=== PATIENT | male | born 1975 | race Caucasian/White ===

== ENCOUNTER → 2021-01-20 08:41 | Outpatient (BNVA) | payer OTHER, SELFPAY | PROVIDERS: PCP Internal Medicine; Visit Provider Physician Assistant | DX: S80.02XA Contusion of left knee, initial encounter (principal); W10.9XXA Fall (on) (from) unspecified stairs and steps, initial encounter; M25.462 Effusion, left knee | CPT/HCPCS: 73564; 99204 ==

== ENCOUNTER → 2021-01-27 10:43 | Outpatient (BNVA) | payer OTHER, SELFPAY | PROVIDERS: PCP Internal Medicine; Visit Provider Physician Assistant | DX: M25.462 Effusion, left knee (principal) | CPT/HCPCS: 99213 ==

== ENCOUNTER 2021-01-27 18:00 | Outpatient (REF) | payer OTHER, SELFPAY ==
--- NOTE | ~2021-01-27 | MR_ITS ---
EXAMINATION: MR KNEE WITHOUT CONTRAST, LEFT CLINICAL INFORMATION: Left knee pain. Unable to bear weight. Fall down stairs. COMPARISON: Multiple priors, most recent left knee radiographs dated 01/20/2021 and left knee MRI dated 11/09/2013. TECHNIQUE: MRI of the knee without contrast was performed using routine sequences on a high-field scanner. FINDINGS: MENISCI: Medial Meniscus: Diffuse complex tearing throughout the meniscal body and posterior horn with severe meniscal attenuation and irregularity, significantly increased when compared to the prior examination. This extends from the anterior aspect of the meniscal body into the posterior root. Lateral Meniscus: Mild fraying of the posterior horn/root inner margin, unchanged. LIGAMENTS: Cruciate: Intact. Collateral: Intact. EXTENSOR MECHANISM: Intact. ARTICULAR CARTILAGE/BONE: Patellofemoral Compartment: Patellar articular cartilage signal heterogeneity with areas of partial-thickness fissuring and minimal subchondral cystic change. Central trochlear articular cartilage signal heterogeneity and surface irregularity with areas of full-thickness loss which extend to the medial trochlea. Mild underlying subchondral cystic change. Marginal osteophytes. Findings have progressed when compared to the prior examination. Medial Compartment: Diffuse full-thickness weightbearing articular cartilage loss with mild bony remodeling as well as underlying subchondral cystic change and marrow edema. Prominent marginal osteophytes. Findings have progressed when compared to the prior examination. Lateral Compartment: Mild weightbearing articular cartilage signal heterogeneity and surface irregularity with marginal osteophytes, progressed when compared to the prior examination. There is focal undersurface delamination at the weightbearing lateral femoral condyle measuring 0.5 cm in AP dimension. JOINT FLUID AND BURSAE: Small joint effusion and small Lynch's cyst. MR/MR knee LT wo con IMPRESSION: 1. Diffuse, complex tearing throughout the medial meniscal body and posterior horn extending into the posterior root, significantly increased when compared to the prior examination. 2. Stable mild fraying of the lateral meniscus posterior horn/root inner margin. 3. Severe medial as well as mild patellofemoral and lateral compartment ostearthritis, progressed when compared to the prior examination. Small joint effusion and small Lynch's cyst.
== END 2021-01-27 18:01 | disposition home or self-care (01) ==
LOC: HO.MRI 18:00
PROVIDERS: Visit Provider Internal Medicine
DX: M25.462 Effusion, left knee (principal); M25.362 Other instability, left knee
CPT/HCPCS: 73721

== ENCOUNTER 2023-04-02 15:37 | Emergency (ER) | payer OTHER, SELFPAY ==
--- NOTE | ~2023-04-02 | CT_ITS ---
EXAMINATION: CT HEAD WITHOUT CONTRAST CT CERVICAL SPINE WITHOUT CONTRAST CLINICAL INFORMATION: Fall. COMPARISON: None. TECHNIQUE: Contiguous axial imaging was performed from the skullbase to vertex without intravenous administration of contrast. Multidetector helical imaging was performed through the cervical spine. This CT examination was performed using dose optimization techniques as appropriate, variously including the following: *Automated exposure control *Adjustment of mA and/or kV according to patient size (this includes techniques or standardized protocols for targeted exams where dose is matched to indication/reason for exam; i.e. extremities or head) *Use of iterative reconstruction technique DLP: 2141 mGy-cm. FINDINGS: HEAD: There is no evidence of acute intracranial hemorrhage or territorial infarction. No abnormal mass effect or midline shift is seen. Chang to white matter differentiation is well preserved. No extra-axial fluid collections are identified. The ventricles are normal in size. Brain parenchymal attenuation is normal. The osseous structures and soft tissues are normal. The mastoid air cells are well aerated. There is moderate mucosal thickening in the anterior ethmoid air cells and right frontal sinus cavity. CERVICAL SPINE: No acute fracture or subluxation is identified in the cervical spine. Mild reversal of the normal cervical lordosis evident. There is moderate loss of disc height with endplate sclerosis and osteophyte formation at the C6-C7 level. The atlantoaxial articulation is normally maintained. The paraspinal soft tissues are normal. The lung apices are clear. CT/CT cervical spine wo IV con IMPRESSION: 1. No acute intracranial pathology. 2. No evidence of acute cervical spine traumatic injury.
--- NOTE | ~2023-04-02 | XR_ITS ---
EXAMINATION: XR CHEST CLINICAL INFORMATION: Fall. Pain. COMPARISON: 03/13/2018. TECHNIQUE: 2 views of the chest were obtained. FINDINGS: No significant abnormality is noted involving the heart, lungs, mediastinum, bony thorax or soft tissues. XR/XR chest 2V IMPRESSION: Unremarkable examination.
--- NOTE | ~2023-04-02 | CT_ITS ---
EXAMINATION: CT HEAD WITHOUT CONTRAST CT CERVICAL SPINE WITHOUT CONTRAST CLINICAL INFORMATION: Fall. COMPARISON: None. TECHNIQUE: Contiguous axial imaging was performed from the skullbase to vertex without intravenous administration of contrast. Multidetector helical imaging was performed through the cervical spine. This CT examination was performed using dose optimization techniques as appropriate, variously including the following: *Automated exposure control *Adjustment of mA and/or kV according to patient size (this includes techniques or standardized protocols for targeted exams where dose is matched to indication/reason for exam; i.e. extremities or head) *Use of iterative reconstruction technique DLP: 2141 mGy-cm. FINDINGS: HEAD: There is no evidence of acute intracranial hemorrhage or territorial infarction. No abnormal mass effect or midline shift is seen. Chang to white matter differentiation is well preserved. No extra-axial fluid collections are identified. The ventricles are normal in size. Brain parenchymal attenuation is normal. The osseous structures and soft tissues are normal. The mastoid air cells are well aerated. There is moderate mucosal thickening in the anterior ethmoid air cells and right frontal sinus cavity. CERVICAL SPINE: No acute fracture or subluxation is identified in the cervical spine. Mild reversal of the normal cervical lordosis evident. There is moderate loss of disc height with endplate sclerosis and osteophyte formation at the C6-C7 level. The atlantoaxial articulation is normally maintained. The paraspinal soft tissues are normal. The lung apices are clear. CT/CT head/brain wo IV con IMPRESSION: 1. No acute intracranial pathology. 2. No evidence of acute cervical spine traumatic injury.
--- NOTE | ~2023-04-02 | CT_ITS ---
EXAMINATION: CT ABDOMEN AND PELVIS WITH CONTRAST CLINICAL INFORMATION: Fall from 10 feet COMPARISON: None available. TECHNIQUE: Multidetector volumetric images were obtained from the superior aspect of the liver through the pubic symphysis following administration 85 mL of Omnipaque 350 intravenous contrast. Sagittal and coronal reformatted images were obtained on the technologist's workstation. Oral contrast: No This CT examination was performed using dose optimization techniques as appropriate, variously including the following: *Automated exposure control *Adjustment of mA and/or kV according to patient size (this includes techniques or standardized protocols for targeted exams where dose is matched to indication/reason for exam; i.e. extremities or head) *Use of iterative reconstruction technique DLP: 831 mGy-cm FINDINGS: LUNG BASES: The visualized lung bases are unremarkable. LIVER, GALLBLADDER, AND BILIARY TREE: The liver is enlarged measuring 19.7 cm in length and demonstrates decreased attenuation consistent with hepatic steatosis. No focal hepatic lesion or biliary ductal dilatation is present. The gallbladder is unremarkable with no evidence of radiopaque gallstones, gallbladder wall thickening, or obvious pericholecystic inflammatory changes. PANCREAS: Unremarkable. SPLEEN: Unremarkable. ADRENAL GLANDS: Unremarkable. KIDNEYS AND URETERS: The kidneys are normal in size, shape, and attenuation. No hydronephrosis, hydroureter, or calculi seen. No perinephric stranding. BLADDER: Unremarkable. GASTROINTESTINAL TRACT: The small and large bowel are unremarkable. The appendix is unremarkable. ABDOMINAL WALL: No significant hernia is appreciated. Tiny left inguinal hernia seen containing only fat. LYMPH NODES: Normal. VASCULAR: Unremarkable. PELVIC VISCERA: Unremarkable. OSSEOUS STRUCTURES: Unremarkable. CT/CT abdomen pelvis w IV con IMPRESSION: 1. No evidence of a traumatic injury in the abdomen or pelvis. 2. Incidental note made of an enlarged fatty liver and tiny left inguinal hernia containing only fat. Fleischner guidelines were followed.
[2023-04-02 15:48] VITALS: BP 146/93; PULSE 77; RESP 16; TEMP 36.2; O2SAT 96; BMI 33.4
--- NOTE | 2023-04-02 15:52 | ED.GENADULT ---
HPI - General Adult General Chief complaint: Fall Stated complaint: fell 10 feet Time Seen by Provider: 04/02/23 16:36 History of Present Illness HPI narrative: The patient says that at around 11:00 yesterday he was helping his father clear some gutters on another person's house. He was up on a ladder about 10 ft when he reached to the side and the ladder swung out to the side and the patient fell onto a wooden deck below. He estimates he fell about 10 ft. He says that he landed essentially completely on his back striking his body and the back of his head. He had no loss of consciousness at the time he did not think he was necessarily significantly injured. He called his primary care doctor later that afternoon and was advised to come to the emergency room if he felt worse. This morning he has had a headache, neck pain, and some right-sided upper abdominal pain. Related Data Allergies Allergy/AdvReac Type Severity Reaction Status Date / Time montelukast [From SINGULAIR] Allergy Unknown Difficulty Verified 04/02/23 15:53 Breathing SEASONAL ALLERGIES Allergy Unknown NASAL Uncoded 01/21/20 15:53 STUFFINESS - DIFF BREATHING singulair Allergy Unknown Difficulty Uncoded 04/02/23 15:48 Breathing Review of Systems Review of Systems: Yes all other systems are reviewed and are negative PMFSH Social History Social History Smoked in Last 30 Days: No Use of substances other than those prescribed or required for medical reasons: No Advance Directives: No Advance Directives Information Provided: No Physical Exam ED Vital Signs: Vital Signs - 24 hr 04/02/23 15:48 04/02/23 16:00 Temperature 97.1 F 98.8 F Pulse Rate 77 80 Respiratory Rate 16 16 Blood Pressure 146/93 H 152/92 H Pulse Oximetry 96 96 Oxygen Delivery Method Room Air Room Air BMI result Body Mass Index 33.4 Const Other: The patient is awake and alert. Does not appear in overt distress or obviously injured. He is pleasant and cooperative. HENMT Other: Some occipital scalp tenderness without overt soft tissue swelling. No raccoon eyes or Carrasquillo sign. Eyes Other: Pupils round equal, extraocular movements intact, conjunctivae clear Neck Other: Some diffuse posterior C-spine tenderness. The patient was more tender along the course of both sternocleidomastoid muscles. Chest Other: Some mild right-sided chest wall tenderness along the lower right anterior chest wall at the costal margin. No crepitus or subcutaneous emphysema. Resp Other: Breath sounds are clear and equal Cardio Other: Regular rate rhythm with no murmur GI Other: The patient has some right upper quadrant tenderness. Lower abdomen is nontender. Back/Spine/Pelvis Other: The thoracic and lumbar spine is nontender to palpation. Skin Other: Skin is intact. No lacerations or bruising. Neuro Other: Patient is awake, alert, oriented, appropriate. Face is symmetrical. Speech is clear. Moves his extremities appropriately. Grossly neurologically intact. Extrem Other: No signs of injuries to the arms and legs. Moving his joints well. Course Course Course Narrative: This is an RME: Additional HPI, ROS, PE not included below will be deferred to primary provider. 48-year-old male presents for evaluation after falling 10 ft off of his ladder. +Head strike, no LOC. Reports chest pain, abdominal pain, and headache. +Fullness behind ears. Plan: Imaging, labs Spoke to charge to get pt back dt mechanism of injury Medications Administered Discontinued Medications Generic Name Dose Route Start Last Admin Trade Name Yun PRN Reason Stop Dose Admin Iohexol 85 ml 04/02/23 17:09 04/02/23 17:10 Iohexol 350 Mg/Ml 100 Ml Infus..Btl IV 04/02/23 17:10 85 ml ONCE ONE Administration Medical Decision Making Medical Decision Making MDM Narrative: Patient sustained a fall with a significant mechanism of injury yesterday when he fell off a ladder approximately 10 ft. He has headache, neck pain, and right-sided upper abdominal pain. He landed on his back on the deck of a wooden porch. The patient's workup in the emergency room today is very reassuring. He does not seem to have any acute fractures or internal injuries. Patient was reassured that his pains are likely mostly musculoskeletal pains and strains. He may be discharged use ibuprofen and acetaminophen as needed Lab Data 04/02/23 16:08 04/02/23 16:08 Labs: Lab Results 04/02/23 Range/Units 16:08 WBC 8.0 (4.8-10.8) X10*3/uL RBC 4.79 (4.60-5.80) X10*6/uL Hgb 14.7 (14.0-18.0) g/dl Hct 42.0 (42.0-52.0) % MCV 87.7 (80.0-98.0) fL MCH 30.7 (27.0-33.0) pg MCHC 35.0 (31.0-36.0) g/dl RDW 11.7 (11.0-16.0) % Plt Count 206 (160-400) X10*3/uL MPV 10.5 (9.4-12.4) fL Immature Gran % (Auto) 0.2 (0.0-0.4) % Neut % (Auto) 52.3 (45-73) % Lymph % (Auto) 36.5 (20-40) % [place] % (Auto) 7.7 (2-11) % Eos % (Auto) 2.7 (0-4) % Baso % (Auto) 0.6 (0-2) % Lymph # (Auto) 2.9 (1.2-4.9) X10*3/uL [place] # (Auto) 0.6 (0.1-1.2) X10*3/uL Eos # (Auto) 0.2 (0.0-0.4) X10*3/uL Baso # (Auto) 0.1 (0.0-0.2) X10*3/uL Abs Immat Gran (auto) 0.02 (0.00-0.03) X10*3/uL Absolute Neuts (auto) 4.2 (2.0-8.3) x10*3/uL Absolute Nucleated RBC 0.000 (0.0-0.012) X10*3/uL Nucleated RBC % (auto) 0.0 (0.0-0.2) /100WBC PT 13.0 (11.1-13.3) SEC INR 1.1 (0.9-1.1) Sodium 139 (135-145) mmol/L Potassium 4.3 (3.3-5.1) mmol/L Chloride 107 (96-108) mmol/L Carbon Dioxide 25 (22-29) mmol/L Anion Gap 11 L (12-20) BUN 11 (9-16) mg/dL Creatinine 1.02 (0.5-1.4) mg/dL Estim Creat Clear Calc 120.9 Estimated GFR > 60 Random Glucose 96 (60-115) mg/dL Calcium 9.2 (8.4-10.2) mg/dL Magnesium 1.9 (1.6-2.6) mg/dL Total Bilirubin 1.0 (0.0-1.0) mg/dL AST 38 H (5-37) U/L ALT 58 H (0-40) U/L Alkaline Phosphatase 46 (39-117) U/L Total Protein 8.0 (6.5-8.0) g/dL Albumin 4.4 (3.5-5.0) g/dL Discharge Plan Discharge Clinical Impression: Fall from ladder, Cervical strain, acute, Head injury, Contusion of chest Patient Disposition: Home, Self-Care Instructions: Cervical Strain (ED), Head Injury (ED), Contusion in Adults (ED) Additional Instructions: Your testing in the emergency room today is very reassuring. I think you are bruised and sprained and strained but I do not think you have any broken bones or acute internal injuries. You should expect to be sore for the next several days. You may use acetaminophen and ibuprofen as needed for pain. Stay in touch with your regular doctor for additional advice as needed. Return to the emergency room if significantly worse. Referrals: Royal Rene DO [Primary Care Provider] - (Follow-up from fall off ladder) Interventions: ED Discharge Assessment Last Done: 04/02/23 19:57 Discharge Date/Time: 04/02/23 19:58
[2023-04-02 16:00] VITALS: BP 152/92; PULSE 80; RESP 16; TEMP 37.1; O2SAT 96
[2023-04-02 16:14] LABS: MANUAL DIFF FLAG NO
--- OUTSIDE RECORDS SUMMARY | 2023-04-02 16:16 | XMS_ITS | Continuity of Care Document ---
Author Name Unknown Organization [facility] Address [address] [place] [address]- Care Team Providers Care Coutierier Name Role Phone Steph Zhou MD Primary [id number] [address] [place] [address]- Encounter Diagnosis Diarrhea(Discharge Diagnosis) - 08/12/20 Attending Physician: Steph Zhou MD Allergies, Adverse Reactions, Alerts Substance Reaction Severity Status NKA Active Medications Adderall By Mouth, 2 times a day, 20mg and 30 mg, 0 Refills, Maintenance, 12/04/18 9:13:21 EDT Start Date: 12/04/18 Status: Ordered clonazePAM 1 mg oral tablet 2 tablet = 2 mg, By Mouth, Daily at bedtime, 0 Refills, Maintenance, 07/26/20 9:11:00 EDT, Partial fill upon patient request if the prescription is for a schedule II opioid drug. Start Date: 07/26/20 Status: Ordered PROzac 40 mg oral capsule 1 capsule = 40 mg, By Mouth, Daily, 0 Refills, Maintenance, 12/04/18 9:13:42 EDT Start Date: 12/04/18 Status: Ordered Problem List Condition Effective Dates Status Health Status Inform ant ADD (attention deficit disorder)(Confirmed) Active Anxiety and depression(Confirmed) Active Diagnosis Diagnosis Type Effective Dates Health Status Clini chastity Service Informant Diarrhea Discharge Diagnosis 08/12/20 Social History Social History Type Response Smoking Status Never (less than 100 in lifetime) entered on: 07/26/20 Sex
--- OUTSIDE RECORDS SUMMARY | 2023-04-02 16:16 | XMS_ITS | Continuity of Care Document ---
Author Name Unknown Organization [facility] Address [address] [place] [address]- Care Team Providers Care Inclusion Specialist Name Role Phone Royal Rene DO Primary Care Physician [place] [facility] [place] 10/11/22 [facility] [address] [place] [address]- Attending Physician: Admtr, Ar8 Admitting Physician: Admtr, Ar8 Referring Physician: Admtr, Ar8 Allergies, Adverse Reactions, Alerts Substance Reaction Severity Status Singulair Active Immunizations Given and Recorded Vaccine Date Status Refusal Reason SARS-CoV-2 (COVID-19) mRNA-1273 vaccine 06/07/20 R ecorded SARS-CoV-2 (COVID-19) mRNA-1273 vaccine 05/09/20 R ecorded Medications Adderall By Mouth, 2 times a day, 20mg and 30 mg, 0 Refills, Maintenance, 12/04/18 9:13:21 EDT Start Date: 12/04/18 Status: Ordered albuterol CFC free 90 mcg/inh inhalation aerosol 2, puffs, Inhalation, Every 6 hours, PRN, # 1 each, Refills 1, Tot. Refills 1, Maintenance, 11/23/21 15:56:00 EDT, Aerosol, Route to Pharmacy Electronically, [id number], [facility]/pharmacy #[id number], 187.96, cm, 11/23/21 15:31:00 EDT,... Start Date: 11/23/21 Status: Ordered amitriptyline 25 mg oral tablet TAKE 1 TO 2 TABLETS BY MOUTH EVERY DAY AT BEDTIME Start Date: 07/25/22 Status: Ordered clonazePAM 1 mg oral tablet 2 tablet = 2 mg, By Mouth, Daily at bedtime, 0 Refills, Maintenance, 07/26/20 9:11:00 EDT, Partial fill upon patient request if the prescription is for a schedule II opioid drug. Start Date: 07/26/20 Status: Ordered L knee pads L knee pads, See Instructions, # 1 each, Refills 0, Tot. Refills 0, Maintenance, for use with knee brace, 08/09/22 15:43:00 EDT, Supply Start Date: 08/09/22 Status: Ordered L knee straps L knee straps, See Instructions, # 2 each, Refills 0, Tot. Refills 0, Maintenance, for use with knee brace, 08/09/22 15:43:00 EDT, Supply Start Date: 08/09/22 Status: Ordered PROzac 40 mg oral capsule 1 capsule = 40 mg, By Mouth, Daily, 0 Refills, Maintenance, 12/04/18 9:13:42 EDT Start Date: 12/04/18 Status: Ordered Problem List Condition Confirmation Course Effective Dates Status Health St atus Informant ADD (attention deficit disorder) Confirmed Active Cough variant asthma Confirmed Active Anxiety and depression Confirmed Active Obese class I Confirmed Active Knee pain, bilateral Confirmed Active Healthcare maintenance Confirmed Active Social History Social History Type Response Smoking Status Never (less than 100 in lifetime) entered on: 07/26/20 Sex Laboratory * Event Display: Non BH Lab Results Authored Date: * Event Display: Non BH Lab Results Authored Date: * Event Display: Non BH Lab Results Authored Date: * Event Display: Non BH Lab Results Authored Date: * Event Display: Non BH Lab Results Authored Date: * Event Display: Non BH Lab Results Authored Date: * Event Display: Non BH Lab Results Authored Date: Patient Care team information Care Team Personnel Name: Royal Rene DO Position: S Physician - Primary Care Member Role: PCP Address: Address: [address] [place] [address] [place] Care Team Related Persons Name: BRI CARDOZA Address: home [address] [place] [address] Name: ANGELES CARDOZA Address: home [address] [place] [address]
--- OUTSIDE RECORDS SUMMARY | 2023-04-02 16:16 | XMS_ITS | Continuity of Care Document ---
Author Name Unknown Organization [facility] Address [address] [place] [address]- Care Team Providers Care Associate Field Service Engineer Name Role Phone Royal Rene DO Primary Care Physician [phone] [place]counter [facility] Date(s): 09/11/22 - 09/18/22 [facility] [address] [place], [place] [address] Encounter Diagnosis Knee pain, bilateral(Discharge Diagnosis) - 09/11/22 Anxiety and depression(Discharge Diagnosis) - 09/11/22 Healthcare maintenance(Discharge Diagnosis) - 09/11/22 Attending Physician: Royal Rene DO Allergies, Adverse Reactions, Alerts Substance Reaction Severity [...] 15:56:00 EDT, Aerosol, Route to Pharmacy Electronically, [id number], [facility]/pharmacy #[id number], 187.96, cm, 11/23/21 15:31:00 EDT,... [...] bilateral Confirmed Active Healthcare maintenance Confirmed Active Diagnosis Diagnosis Type Effective Dates Health Status Clinical Service Informant Knee pain, bilateral Discharge Diagnosis 09/11/22 Anxiety and depression Discharge Diagnosis 09/11/22 Healthcare maintenance Discharge Diagnosis 09/11/22 Vital Signs Most recent to oldest [Reference Range]: 1 2 Height 187.96 cm (09/11/22 9:20 AM) 187.96 cm (09/11/22 8:35 AM) Weight 118.6 kg (09/11/22 8:35 AM) Oxygen Saturation [94-100 %] 96 % (09/11/22 8:35 AM) Pulse Rate [55-90 bpm] 80 bpm (09/11/22 8:35 AM) Body Mass Index [18.5-24.99 kg/m2] 33.57 kg/m2 *>HHI* (09/11/22 8:35 AM) Blood Pressure [90-138/55-84 mm Hg] 128/ 84mm Hg (09/11/22 9:20 AM) 148/103mm Hg *H* (09/11/22 8:35 AM) Respiratory Rate [16-30 br/min] 16 br/mi n (09/11/22 8:35 AM) Mode of Delivery (Oxygen) Room air (09/11/22 8:35 AM) Blood pressure sites Arm, right (09/11/22 8:35 AM) Weight Obtained Via Standing scale (09/11/22 8:35 AM) Social History Social History Type Response Smoking Status Never (less than 100 in lifetime) entered on: 07/26/20 Sex Note * Patricia Lagos: PERFORM, SIGN, VERIFY Event Display: Patient Education/Instruction Authored Date: [id number] [facility] *[facility] Clinical Summary Name MARIAN CARDOZA Age 47 Years 1975 PCP Royal Rene DO PCP Visit Date 09/11/2022 08:32:00 Additional Instructions: Scheduled Appointments?? Future Appointments ?No Future Appointments Scheduled Follow-Up Instructions ?? Diagnosis Anxiety disorder, unspecified; Encounter for general adult medical examination without abnormal findings; Pain in right knee Medications: Please continue your medications until treatment is completed or stopped by your provider. Discuss any questions related to medications with your provider. Medications to Continue with No Changes These medications were not printed or sent to your pharmacy Albuterol (albuterol CFC free 90 mcg/inh inhalation aerosol) 2 puff(s) Inhalation every 6 hours as needed Wheezing/Shortness of Breath. Refills: 1. Next Dose: amiTRIPTYLINE (amitriptyline 25 mg oral tablet) TAKE 1 TO 2 TABLETS BY MOUTH EVERY DAY AT BEDTIME. Next Dose: Amphetamine-Dextroamphetamine (Adderall) Oral twice a day. 20mg and 30 mg. Next Dose: Clonazepam (clonazePAM 1 mg oral tablet) 2 tab(s) Oral Daily at Bedtime. Next Dose: Durable Medical Equipment (L knee pads) for use with knee brace. Refills: 0. Next Dose: Durable Medical Equipment (L knee straps) for use with knee brace. Refills: 0. Next Dose: Fluoxetine (PROzac 40 mg oral capsule) 1 capsule Oral Daily. Next Dose: Allergy Info:?? Singulair Medications Given This Visit Future Orders ?No future orders Vital Signs Height 187.96 cm Weight 118.6 kg BMI 33.57 kg/m2 Blood Pressure 128 mm Hg/84 mm Hg Temperature Pulse Rate 80 bpm Respiratory Rate 16 br/min 02 Sat Mode of Delivery 96 %/Room air You can now view a summary of your hospital visit from the comfort of your home through a free online portal called [employer]. [employer] is a website that allows you to securely view your medical information including discharge summary, medications and follow-up visits. ??You can alsosend a secure electronic message to your doctor???s office to request appointments, renew medications or just ask a question. You can enroll at [email or web address] or register during your next office visit. Disclaimer:?? The information provided is of a general nature and is intended to be used in conjunction with the recommendations and advice of your health care practitioner. ??Every effort has been made to ensure that the information provided is accurate and complete at the time it is provided to you however, as your needs change, or, as new ??information becomes available, different or additional instructions may be required. If you have questions, please consult with your primary care provider or pharmacist, as appropriate. ??This information is not intended to serve as substitution for assessment and evaluation by a qualified health care provider. If you do not have a primary care provider, you may find a [facility] provider by calling [facility] at [phone]. For information about the plan of care including goals and instructions for your diagnosis, please see the patient education orders section of this document. Patient Education Materials?? The content of this educational material or handout may have been modified, supplemented, or adapted from its original content and format to support your individualized medical care. Patient Care team information Care Team Personnel Name: Royal Rene DO Position: [facility] Primary Care Physician Member Role: PCP Address: Address: [address] [place] [address]- Care Team Related Persons Name: BRI CARDOZA Address: home [address] [place] [address] Name: ANGELES CARDOZA Address: [address] [place] [address]
--- OUTSIDE RECORDS SUMMARY | 2023-04-02 16:16 | XMS_ITS | Continuity of Care Document ---
Author Name Unknown Organization [facility] Address [address] [place] [address]- Care Team Providers Care Mall Plant Caretaker Name Role Phone Steph Zhou MD Primary Care Physician [phone] [place] [facility] [place]11[place]20 - 09/10/20 [facility] [address] [place] [address]- Allergies, Adverse Reactions, Alerts Substance Reaction Severity [...] deficit disorder)(Confirmed) Active Anxiety and depression(Confirmed) Active Social History Social History Type Response Smoking Status Never (less than 100 in lifetime) entered on: 07/26/20 Sex
--- OUTSIDE RECORDS SUMMARY | 2023-04-02 16:16 | XMS_ITS | Continuity of Care Document ---
Author Name Unknown Organization [facility] Address [address] [place] [address]- Care Team Providers Care Clinical Abstractor Name Role Phone Angeline Anna NP Primary Care Physician [place] [facility] [place]23[place]21 [place] 11/30/21 [facility] [address] [place] [address]- Encounter Diagnosis Acute sinusitis(Discharge Diagnosis) - 11/23/21 Cough variant asthma(Discharge Diagnosis) - 11/23/21 Environmental allergies(Discharge Diagnosis) - 11/23/21 Attending Physician: Angeline Anna NP Allergies, Adverse Reactions, Alerts No Known Allergies Medications Adderall By Mouth, 2 times a day, 20mg and 30 mg, 0 Refills, Maintenance, 12/04/18 9:13:21 EDT Start Date: 12/04/18 Status: Ordered albuterol CFC free 90 mcg/inh inhalation aerosol 2, puffs, Inhalation, Every 6 hours, PRN, # 1 each, Refills 1, Tot. Refills 1, Maintenance, 11/23/21 15:56:00 EDT, Aerosol, Route to Pharmacy Electronically, [id number], [facility]/pharmacy #[id number], 187.96, cm, 11/23/21 15:31:00 EDT,... Start Date: 11/23/21 Status: Ordered clonazePAM 1 mg oral tablet [...] 9:13:42 EDT Start Date: 12/04/18 Status: Ordered Xyzal 5 mg oral tablet 1 tablet = 5 mg, By Mouth, Daily in PM, # 30 tablet, 3 Refills, Maintenance, 11/23/21 15:57:00 EDT,Tablet, [facility]/pharmacy #[id number], Partial fill upon patient request if the prescription is for a scheduleII opioid drug., 1 tablet By Mouth Daily in PM, 187... Start Date: 11/23/21 Status: Ordered Problem List Condition Effective Dates Status Health Status Inform ant ADD (attention deficit disorder)(Confirmed) Active Cough variant asthma(Confirmed) Active Anxiety and depression(Confirmed) Active Obese class I(Confirmed) Active Diagnosis Diagnosis Type Effective Dates Health Status Clinical Service Informant Acute sinusitis Discharge Diagnosis 11/23/21 Cough variant asthma Discharge Diagnosis 11/23/21 Environmental allergies Discharge Diagnosis 11/23/21 Vital Signs Most recent to oldest [Reference Range]: 1 Height 187.96 cm (11/23/21 3:31 PM) Weight 115 kg (11/23/21 3:31 PM) Oxygen Saturation [94-100 %] 97 % (11/23/21 3:31 PM) Pulse Rate [55-90 bpm] 68 bpm (11/23/21 3:31 PM) Body Mass Index [18.5-24.99] 32.55 *>HHI* (11/23/21 3:31 PM) Blood Pressure [90-138/55-84 mm Hg] 127/ 87mm Hg (11/23/21 3:31 PM) Respiratory Rate [16-30 br/min] 16 br/mi n (11/23/21 3:31 PM) Blood pressure sites Arm, right (11/23/21 3:31 PM) Weight Obtained Via Standing scale (11/23/21 3:31 PM) Social History Social History Type Response Smoking Status Never (less than 100 in lifetime) entered on: 07/26/20 Sex
--- OUTSIDE RECORDS SUMMARY | 2023-04-02 16:16 | XMS_ITS | Continuity of Care Document ---
Author Name Unknown Organization [facility] Address [address] [place] [address]- Care Team Providers Care In Home Sales Representative Name Role Phone Shoshana WEISS, Angeline Contreras Primary Care Physician Encounter [facility] [place] ACCT R [id number] Date(s): 10/24/21 - 11/23/21 [facility] [address] [place] [address]- Attending Physician: Leyla Diaz Admitting Physician: Leyla Diaz Referring Physician: AdmtrLeyla Allergies, Adverse Reactions, Alerts No Known Allergies Medications Adderall By Mouth, 2 times a day, 20mg and 30 mg, 0 Refills, Maintenance, 12/04/18 9:13:21 EDT Start Date: 12/04/18 Status: Ordered albuterol CFC free 90 mcg/inh inhalation aerosol 2, puffs, Inhalation, Every 6 hours, PRN, # 1 each, Refills 1, Tot. Refills 1, Maintenance, 11/23/21 15:56:00 EDT, Aerosol, Route to Pharmacy Electronically, [id number], [facility]/pharmacy #[id number], 187.96, cm, 11/23/21 15:31:00 EDT,... Start Date: 11/23/21 Status: Ordered Augmentin 875 mg-125 mg oral tablet 1 tablet, By Mouth, Every 12 hours, for 7 days, # 14 tablet, 0 Refills, Acute 11/30/21 15:55:00 EDT, 11/23/21 15:55:00 EDT, Tablet, [facility]/pharmacy #[id number], Partial fill upon patient request if the prescription is for a schedule II opioid drug., 187.96, cm... Start Date: 11/23/21 Stop Date: 11/30/21 Status: Ordered clonazePAM 1 mg oral tablet [...] tablet, 3 Refills, Maintenance, 11/23/21 15:57:00 EDT,Tablet, [facility]/pharmacy #[id number], Partial fill upon patient request if the prescription is for a scheduleII opioid drug., 1 tablet By Mouth Daily in PM, 187... Start Date: 11/23/21 Status: Ordered Problem List Condition Effective Dates Status Health Status Inform ant ADD (attention deficit disorder)(Confirmed) Active Cough variant asthma(Confirmed) Active Anxiety and depression(Confirmed) Active Obese class I(Confirmed) Active Social History Social History Type Response Smoking Status Never (less than 100 in lifetime) entered on: 07/26/20 Sex
--- OUTSIDE RECORDS SUMMARY | 2023-04-02 16:16 | XMS_ITS | Continuity of Care Document ---
Author Name Unknown Organization [facility] Address [address] [place] [address]- Care Team Providers Care Jacquard Twine Polisher Operator Name Role Phone Royal Rene DO Primary Care Physician [phone] Encounter [facility] [place] [place] Date(s): 08/07/22 - 09/06/22 [facility] [address] [place], [place] [address] Allergies, Adverse Reactions, Alerts Substance Reaction Severity Status Singulair Active Medications Adderall By Mouth, 2 times a day, 20mg and 30 mg, 0 Refills, Maintenance, 12/04/18 9:13:21 EDT Start Date: 12/04/18 Status: Ordered albuterol CFC free 90 mcg/inh inhalation aerosol 2, puffs, Inhalation, Every 6 hours, PRN, # 1 each, Refills 1, Tot. Refills 1, Maintenance, 11/23/21 15:56:00 EDT, Aerosol, Route to Pharmacy Electronically, [id number], [facility]/pharmacy #[id number], 187.96, cm, 11/23/21 15:31:00 EDT,... Start Date: 11/23/21 Status: Ordered amitriptyline 25 mg oral tablet TAKE 1 TO 2 TABLETS BY MOUTH EVERY DAY AT BEDTIME Start Date: 07/25/22 Status: Ordered Azithromycin 5 Day Dose Pack 250 mg oral tablet 1 pack/packet, By Mouth, Once, as directed on package labeling, # 6 tablet, 0 Refills, Soft Stop, 07/27/22 12:08:00 EDT, Tablet, [facility]/pharmacy #[id number], Partial fill upon patient request if the prescription is for a schedule II opioid drug., 187.96, cm, 0... Start Date: 07/27/22 Status: Ordered clonazePAM 1 mg oral tablet [...] Mouth, Daily in PM, # 30 tablet, 1 Refills, Maintenance, 02/19/22 13:50:00 EDT,Tablet, [facility]/pharmacy #[id number], Partial fill upon patient request if the prescription is for a scheduleII opioid drug., 1 tablet By Mouth Daily in PM, 187... Start Date: 02/19/22 Status: Ordered Problem List Condition Confirmation Course Effective Dates Status [facility] atus Informant ADD (attention deficit disorder) Confirmed Active Cough variant asthma Confirmed Active Anxiety and depression Confirmed Active Obese class I Confirmed Active Social History Social History Type Response Smoking Status Never (less than 100 in lifetime) entered on: 07/26/20 Sex Patient Care team information Care Team Personnel Name: Royal Rene DO Position: S Primary Care Physician Member Role: PCP Address: Address: [address] [place] [address]- [place] Care Team Related Persons Name: BRI CARDOZA Address: home [address] [place] [address] Name: ANGELES CARDOZA Address: home [address] [place] [address]
--- OUTSIDE RECORDS SUMMARY | 2023-04-02 16:17 | XMS_ITS | Continuity of Care Document ---
Author Name Unknown Organization [facility] Address [address] [place] [address]- Care Team Providers Care Construction Coordinator Name Role Phone Royal Rene DO Primary Care Physician [place] [facility] [place] 07/26/22 - 08/25/22 [facility] [address] [place], [place] [address] Allergies, Adverse Reactions, Alerts Substance Reaction [...] 15:56:00 EDT, Aerosol, Route to Pharmacy Electronically, [id number], [facility]/pharmacy #[id number], 187.96, cm, 11/23/21 15:31:00 EDT,... Start Date: 11/23/21 Status: Ordered amitriptyline 25 mg oral tablet TAKE 1 TO 2 TABLETS BY MOUTH EVERY DAY AT BEDTIME Start Date: 07/25/22 Status: Ordered Azithromycin 5 Day Dose Pack 250 mg oral tablet 1 pack/packet, By Mouth, Once, as directed on package labeling, # 6 tablet, 0 Refills, Soft Stop, 07/27/22 12:08:00 EDT, Tablet, [facility]/pharmacy #[id number], Partial fill upon patient request if [...] tablet, 1 Refills, Maintenance, 02/19/22 13:50:00 EDT,Tablet, [facility]/pharmacy #[id number], Partial fill upon patient request if the prescription is for a scheduleII opioid drug., 1 tablet By Mouth Daily in PM, 187... Start Date: 02/19/22 Status: Ordered Problem List Condition Confirmation Course Effective Dates Status [facility] at[facility] Informant ADD (attention deficit [...] Care Physician Member Role: PCP Address: Address: [address] [place] [address]- [place] Care Team Related Persons Name: BRI CARDOZA Address: home [address] [place] [address] Name: ANGELES CARDOZA Address: home [address] [place] [address]
--- OUTSIDE RECORDS SUMMARY | 2023-04-02 16:17 | XMS_ITS | Continuity of Care Document ---
Author Name Unknown Organization [facility] Address [address] [place] [address]- Care Team Providers Care Flight Dispatcher Name Role Phone Steph Zhou MD Primary Care Physician [phone] Encounter [facility] [place] Date(s): 08/12/20 - 09/11/20 [facility] [address] [place] [address]- Attending Physician: Leyla Diaz Admitting Physician: Leyla Diaz Referring Physician: Leyla Diaz Allergies, Adverse Reactions, Alerts Substance Reaction Severity [...]
--- OUTSIDE RECORDS SUMMARY | 2023-04-02 16:17 | XMS_ITS | Continuity of Care Document ---
Author Name Unknown Organization [facility] Address [address] [place] [address]- Care Team Providers Care Flat Locker Name Role Phone Royal Rene DO Primary Care Physician En[place] [facility] [place] Date(s): 07/25/22 - 08/24/22 [facility] [address] [place], [place] [address] Allergies, Adverse Reactions, Alerts Substance Reaction Severity [...] 15:56:00 EDT, Aerosol, Route to Pharmacy Electronically, [id number], [facility]/pharmacy #[id number], 187.96, cm, 11/23/21 15:31:00 EDT,... Start Date: 11/23/21 Status: Ordered amitriptyline 25 mg oral tablet TAKE 1 TO 2 TABLETS BY MOUTH EVERY DAY AT BEDTIME Start Date: 07/25/22 Status: Ordered Azithromycin 5 Day Dose Pack 250 mg oral tablet 1 pack/packet, By Mouth, Once, as directed on package labeling, # 6 tablet, 0 Refills, Soft Stop, 07/27/22 12:08:00 EDT, Tablet, [facility]/pharmacy #[id number], Partial fill upon patient request if [...] tablet, 1 Refills, Maintenance, 02/19/22 13:50:00 EDT,Tablet, [facility]/pharmacy #[id number], Partial fill upon patient request if the prescription is for a scheduleII opioid drug., 1 tablet By Mouth Daily in PM, 187... Start Date: 02/19/22 Status: Ordered Problem List Condition Confirmation Course Effective Dates Status [facility] at[facility] Informant ADD (attention deficit [...] Care Physician Member Role: PCP Address: Address: [address] [place] [address]- [place] Care Team Related Persons Name: BRI CARDOZA Address: home [address] [place] [address] Name: ANGELES CARDOZA Address: home [address] [place] [address]
--- OUTSIDE RECORDS SUMMARY | 2023-04-02 16:17 | XMS_ITS | Continuity of Care Document ---
Author Name Unknown Organization [facility] Address [address] [place] [address]- Care Team Providers Care Development Planner Name Role Phone Shoshana WEISS, Angeline Contreras Primary Care Physician [place] [facility] [place] Date(s): 10/24/21 - 11/23/21 [facility] [address] [place] [address]- Allergies, Adverse Reactions, Alerts No Known Allergies Medications Adderall By Mouth, 2 times a day, 20mg and 30 mg, 0 Refills, Maintenance, 12/04/18 9:13:21 EDT Start Date: 12/04/18 Status: Ordered albuterol CFC free 90 mcg/inh inhalation aerosol 2, puffs, Inhalation, Every 6 hours, PRN, # 1 each, Refills 1, Tot. Refills 1, Maintenance, 11/23/21 15:56:00 EDT, Aerosol, Route to Pharmacy Electronically, [id number], [facility]/pharmacy #[id number], 187.96, cm, 11/23/21 15:31:00 EDT,... Start Date: 11/23/21 Status: Ordered Augmentin 875 mg-125 mg oral tablet 1 tablet, By Mouth, Every 12 hours, for 7 days, # 14 tablet, 0 Refills, Acute 11/30/21 15:55:00 EDT, 11/23/21 15:55:00 EDT, Tablet, [facility]/pharmacy #[id number], Partial fill upon patient request if [...] tablet, 3 Refills, Maintenance, 11/23/21 15:57:00 EDT,Tablet, [facility]/pharmacy #[id number], Partial fill upon patient request if the [...]
--- OUTSIDE RECORDS SUMMARY | 2023-04-02 16:17 | XMS_ITS | Continuity of Care Document ---
Author Name Unknown Organization [facility] Address [address] [place] [address]- Care Team Providers Care Repairer Handtools Name Role Phone Steph Zhou MD Primary Care Physician [id number] Date[facility] 08/02/20 - 09/01/20 [facility] [address] [place] [address]- Allergies, Adverse Reactions, Alerts Substance Reaction Severity [...]
--- OUTSIDE RECORDS SUMMARY | 2023-04-02 16:17 | XMS_ITS | Continuity of Care Document ---
Author Name Unknown Organization [facility] Address [address] [place] [address]- Care Team Providers Care Manager Night Name Role Phone Steph Zhou MD [id number] [address] [place] [address]- Encounter Diagnosis Encounter to establish care with new doctor(Discharge Diagnosis) - 07/26/20 Screening for lipid disorders(Discharge Diagnosis) - 07/26/20 Screening for diabetes mellitus(Discharge Diagnosis) - 07/26/20 Diarrhea(Discharge Diagnosis) - 07/26/20 Anxiety and depression(Discharge Diagnosis) - 07/26/20 ADD (attention deficit disorder)(Discharge Diagnosis) - 07/26/20 Attending Physician: Steph Zhou MD Allergies, Adverse [...] Effective Dates Health Status Clinical Service Informant Encounter to establish care with new doctor Discharge Diagnosis 07/26/20 ADD (attention deficit disorder) Discharge Diagnosis 07/26/20 Anxiety and depression Discharge Diagnosis 07/26/20 Diarrhea Discharge Diagnosis 07/26/20 Screening for lipid disorders Discharge Diagnosis 07/26/20 Screening for diabetes mellitus Discharge Diagnosis 07/26/20 Procedures Procedure Date Related Diagnosis Body Site Status Knee joint 1 Completed 1left knee- torn meniscus Social History Social History Type Response Smoking Status Never (less than 100 in lifetime) entered on: 07/26/20 Sex
--- OUTSIDE RECORDS SUMMARY | 2023-04-02 16:17 | XMS_ITS | Continuity of Care Document ---
Author Name Unknown Organization [facility] Address [address] [place] [address]- Care Team Providers Care Greensman Name Role Phone Shoshana WEISS, Angeline Contreras Primary Care Physician [phone] [place] [facility] [place] 11/23/21 - 12/23/21 [facility] [address] [place] [address]- Attending Physician: Leyla Diaz Admitting Physician: Leyla Diaz Referring Physician: Leyla Diaz Allergies, Adverse Reactions, Alerts No Known Allergies Medications Adderall By Mouth, 2 times a day, 20mg and 30 mg, 0 Refills, Maintenance, 12/04/18 9:13:21 EDT Start Date: 12/04/18 Status: Ordered albuterol CFC free 90 mcg/inh inhalation aerosol 2, puffs, Inhalation, Every 6 hours, PRN, # 1 each, Refills 1, Tot. Refills 1, Maintenance, 11/23/21 15:56:00 EDT, Aerosol, Route to Pharmacy Electronically, [id number], [facility]/pharmacy #[id number], 187.96, cm, 11/23/21 15:31:00 EDT,... [...] tablet, 3 Refills, Maintenance, 11/23/21 15:57:00 EDT,Tablet, [facility]/pharmacy #[id number], Partial fill upon patient request if the [...]
--- OUTSIDE RECORDS SUMMARY | 2023-04-02 16:17 | XMS_ITS | Continuity of Care Document ---
Author Name Unknown Organization [facility] Address [address] [place] [address]- Care Team Providers Care Cable Tool Operator Name Role Phone Shoshana WEISS, Angeline Contreras Primary Care Physician [phone] [place] [facility] [place] 11/03/21 - 12/03/21 [facility] [address] [place] [address]- Allergies, Adverse Reactions, Alerts No Known Allergies Medications Adderall By Mouth, 2 times a day, 20mg and 30 mg, 0 Refills, Maintenance, 12/04/18 9:13:21 EDT Start Date: 12/04/18 Status: Ordered albuterol CFC free 90 mcg/inh inhalation aerosol 2, puffs, Inhalation, Every 6 hours, PRN, # 1 each, Refills 1, Tot. Refills 1, Maintenance, 11/23/21 15:56:00 EDT, Aerosol, Route to Pharmacy Electronically, [id number], [facility]/pharmacy #[id number], 187.96, cm, 11/23/21 15:31:00 EDT,... [...] tablet, 3 Refills, Maintenance, 11/23/21 15:57:00 EDT,Tablet, [facility]/pharmacy #[id number], Partial fill upon patient request if the [...]
--- OUTSIDE RECORDS SUMMARY | 2023-04-02 16:17 | XMS_ITS | Continuity of Care Document ---
Author Name Unknown Organization [facility] Address [address] [place] [address]- Care Team Providers Care Sander Hand Name Role Phone Shoshana WEISS, Angeline Contreras [facility] Phys[id number] [address] [place] [address]- Attending Physician: Anna ROBERTS, Jazmine Contreras Allergies, Adverse Reactions, Alerts No Known Allergies [...] opioid drug. Start Date: 07/26/20 Status: Ordered predniSONE 10 mg oral tablet 1 tablet = 10 mg, By Mouth, Daily, Taper as follows 30 mg x 2 days, 20 mg x 2 days, 10 mg x 3 days,# 13 tablet, 0 Refills, Maintenance, 10/24/21 17:13:00 EDT, [facility]/pharmacy #[id number], Partial fill upon patient request if the prescription is for a schedul... Start Date: 10/24/21 Status: Ordered PROzac 40 mg oral capsule 1 capsule = 40 mg, By Mouth, Daily, 0 Refills, Maintenance, 12/04/18 9:13:42 EDT Start Date: 12/04/18 Status: Ordered Problem List Condition Effective Dates Status Health Status Inform ant ADD (attention deficit disorder)(Confirmed) Active Anxiety and depression(Confirmed) Active Vital Signs Most recent to oldest [Reference Range]: 1 Pulse Rate [55-90 bpm] 93 bpm *H* (10/24/21 4:22 PM) Blood Pressure [90-138/55-84 mm Hg] 146/ 103mm Hg *H* (10/24/21 4:22 PM) Respiratory Rate [16-30 br/min] 20 br/mi n (10/24/21 4:22 PM) Temperature [96.8-100.4 DegF] 97.4 DegF (10/24/21 4:22 PM) Blood pressure sites Arm, right (10/24/21 4:22 PM) Temperature Route Temporal (10/24/21 4:22 PM) Social History Social History Type Response Smoking Status Never (less than 100 in lifetime) entered on: 07/26/20 Sex
[2023-04-02 16:19] LABS: Basophils Absolute Auto 0.1 X10*3/uL (0.0-0.2); Basophils Percent Auto 0.6 % (0-2); Eosinophils Absolute Auto 0.2 X10*3/uL (0.0-0.4); Eosinophils Percent Auto 2.7 % (0-4); Hemoglobin 14.7 g/dl (14.0-18.0); Imm Gran Abs Auto 0.02 X10*3/uL (0.00-0.03); Imm Gran Pct Auto 0.2 % (0.0-0.4); Lymphocytes Absolute Auto 2.9 X10*3/uL (1.2-4.9); Lymphocytes Percent Auto 36.5 % (20-40); Mean Corpuscular Hemoglobin 30.7 pg (27.0-33.0); Mean Corpuscular Volume 87.7 fL (80.0-98.0); Mean Platelet Volume 10.5 fL (9.4-12.4); Monocytes Absolute Auto 0.6 X10*3/uL (0.1-1.2); Monocytes Percent Auto 7.7 % (2-11); Neutrophils Absolute Auto 4.2 x10*3/uL (2.0-8.3); Neutrophils Percent Auto 52.3 % (45-73); Platelet Count 206 X10*3/uL (160-400); Red Blood Count 4.79 X10*6/uL (4.60-5.80); Red Cell Distribution Width 11.7 % (11.0-16.0)
[2023-04-02 16:32] LABS: Alanine Aminotransferase 58 U/L (0-40); Albumin Level 4.4 g/dL (3.5-5.0); Alkaline Phosphatase 46 U/L (39-117); Anion Gap 11 (12-20); Aspartate Amino Transferase 38 U/L (5-37); Blood Urea Nitrogen 11 mg/dL (9-16); Calcium 9.2 mg/dL (8.4-10.2); Carbon Dioxide 25 mmol/L (22-29); Chloride 107 mmol/L (96-108); Creatinine Clr Calc Pharmacy 120.9; Estimated Glomerular Filt Rate > 60; Glucose Random 96 mg/dL (60-115); Magnesium 1.9 mg/dL (1.6-2.6); Potassium 4.3 mmol/L (3.3-5.1); Sodium 139 mmol/L (135-145)
[2023-04-02 16:40] LABS: INTERNATIONAL NORM RATIO 1.1 (0.9-1.1)
[2023-04-02] MEDS: iohexoL 350 MG/ML 100 ML INFUS..BTL 85 ML IV (17:10)
== END 2023-04-02 19:58 | disposition home or self-care (01) ==
PROVIDERS: Physician Assistant; Emergency Provider Emergency Medicine; PCP Family Medicine
DX: S09.90XA Unspecified injury of head, initial encounter (principal); S16.1XXA Strain of muscle, fascia and tendon at neck level, initial encounter; S20.211A Contusion of right front wall of thorax, initial encounter; W11.XXXA Fall on and from ladder, initial encounter; Y93.H9 Activity, other involving exterior property and land maintenance, building and construction; Y92.017 Garden or yard in single-family (private) house as the place of occurrence of the external cause; Y99.9 Unspecified external cause status
CPT/HCPCS: 36415; 70450; 71046; 72125; 74177; 80053; 83735; 85025; 85610; 99284; Q9967

== ENCOUNTER 2024-05-30 16:53 | Emergency (ER) | payer OTHER, SELFPAY ==
--- NOTE | ~2024-05-30 | XR_ITS ---
CLINICAL HISTORY: cough, wheezing 2 view chest x-ray Comparison: CR/SR - XR CHEST 2V - 04/02/23 17:11 EST Findings: The lungs are clear. Heart size is normal. No acute fracture. IMPRESSION: 1. No acute findings. This document has been electronically signed by: Leigh Ann Hong MD on 05/30/2024 18:42:56
[2024-05-30 17:03] VITALS: BP 136/91; PULSE 117; RESP 22; TEMP 37.3; O2SAT 97; BMI 33.3
--- NOTE | 2024-05-30 17:04 | ECG_ITS ---
Test Reason : cp Blood Pressure : */* mmHG Vent. Rate : 110 BPM Atrial Rate : 110 BPM P-R Int : 160 ms QRS Dur : 102 ms QT Int : 328 ms P-R-T Axes : 40 9 30 degrees QTcB Int : 443 ms Sinus tachycardia Incomplete right bundle branch block Borderline ECG When compared with ECG of 10-Oct-2011 14:17, MANUAL COMPARISON REQUIRED PREVIOUS ECG IS INCOMPATIBLE Referred By: Clarice Del Real Electronically Signed By: ANAMIKA VILLAGOMEZ MD
--- NOTE | 2024-05-30 17:05 | ED.URI ---
HPI - URI/Sore Throat General Chief Complaint: Upper Respiratory Symptoms Stated Complaint: cold for 2 weeks Related Data Allergies Allergy/AdvReac Type Severity Reaction Status Date / Time montelukast [From SINGULAIR] Allergy Unknown Difficulty Verified 05/30/24 17:05 Breathing SEASONAL ALLERGIES Allergy Unknown NASAL Uncoded 01/21/20 15:53 STUFFINESS - DIFF BREATHING singulair Allergy Unknown Difficulty Uncoded 04/02/23 15:48 Breathing PMFSH Social History Social History Advance Directives: No Advance Directives Information Provided: No Do you have a plan to hurt others: No Plan Physical Exam Vital Signs: Vital Signs: Last Vital Signs Temp 99.2 F 05/30/24 17:03 Pulse 112 H 05/30/24 19:31 Resp 26 H 05/30/24 19:31 BP 136/91 H 05/30/24 17:03 Pulse Ox 97 05/30/24 17:03 O2 Del Method Room Air 05/30/24 17:03 BMI result Body Mass Index 33.3 Course Course Course Narrative: This is a Rapid Medical Examination (RME) performed by Claudette Del Real PA-C in triage. Full HPI, ROS, assessment and treatment plan per primary provider in the Main ED. 49 yo male hx asthma here for eval of congested cough, chest pain, wheezing x2 weeks, worsening over the last 3-4 days. 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 taking nyquil at home. + expirtory wheezes. Plan: labs, cxr, ekg Reevaluation(s) Reevaluation #1: Patient left the emergency department before myself or any of the other clinicians could review or explain physical exam findings, test results, need or lack there of for additional testing, treatment options, or a treatment plan. Medications Administered Discontinued Medications Generic Name Dose Route Start Last Admin Trade Name Freq PRN Reason Stop Dose Admin Albuterol Sulfate 5 mg/ 0 mg 05/30/24 19:27 05/30/24 19:29 Albuterol/Ipratropium 3 ml INHALE 05/30/24 19:28 1 each ONCE ONE Administration Medical Decision Making Lab Data 05/30/24 17:12 05/30/24 17:12 Labs: Lab Results 05/30/24 Range/Units 17:12 WBC 5.9 (4.8-10.8) X10*3/uL RBC 4.77 (4.60-5.80) X10*6/uL Hgb 14.8 (14.0-18.0) g/dl Hct 41.8 L (42.0-52.0) % MCV 87.6 (80.0-98.0) fL MCH 31.0 (27.0-33.0) pg MCHC 35.4 (31.0-36.0) g/dl RDW 11.9 (11.0-16.0) % Plt Count 200 (160-400) X10*3/uL MPV 10.6 (9.4-12.4) fL Immature Gran % (Auto) 0.2 (0.0-0.4) % Neut % (Auto) 58.1 (45-73) % Lymph % (Auto) 19.3 L (20-40) % Bullock % (Auto) 18.3 H (2-11) % Eos % (Auto) 3.6 (0-4) % Baso % (Auto) 0.5 (0-2) % Lymph # (Auto) 1.1 L (1.2-4.9) X10*3/uL Bullock # (Auto) 1.1 (0.1-1.2) X10*3/uL Eos # (Auto) 0.2 (0.0-0.4) X10*3/uL Baso # (Auto) 0.0 (0.0-0.2) X10*3/uL Abs Immat Gran (auto) 0.01 (0.00-0.03) X10*3/uL Absolute Neuts (auto) 3.4 (2.0-8.3) x10*3/uL Absolute Nucleated RBC 0.000 (0.0-0.012) X10*3/uL Nucleated RBC % (auto) 0.0 (0.0-0.2) /100WBC PT 13.4 H (10.9-12.4) SEC INR 1.2 H (0.9-1.1) Sodium 140 (135-145) mmol/L Potassium 4.1 (3.3-5.1) mmol/L Chloride 108 (96-108) mmol/L Carbon Dioxide 25 (22-29) mmol/L Anion Gap 11 L (12-20) BUN 15 (9-16) mg/dL Creatinine 0.97 (0.5-1.4) mg/dL Estim Creat Clear Calc 125.5 Estimated GFR > 60 Random Glucose 111 (60-115) mg/dL Calcium 8.7 (8.4-10.2) mg/dL Magnesium 2.0 (1.6-2.6) mg/dL Total Bilirubin 0.5 (0.0-1.0) mg/dL AST 53 H (5-37) U/L ALT 93 H (0-40) U/L Alkaline Phosphatase 56 (39-117) U/L Troponin I High Sens < 2.7 (<3.5-35.0) ng/L Total Protein 8.3 H (6.5-8.0) g/dL Albumin 4.4 (3.5-5.0) g/dL Influenza Type A (PCR) NEGATIVE (Negative) Influenza Type B (PCR) POSITIVE A (Negative) RSV RNA Qual (PCR) NEGATIVE (Negative) SARS-CoV-2 RNA (RT-PCR) NEGATIVE (Negative) Discharge Plan Discharge Clinical Impression: Influenza Patient Disposition: Left W/O Completing Treatment Discharge Date/Time: 05/30/24 23:56
[2024-05-30 17:20] LABS: MANUAL DIFF FLAG NO
[2024-05-30 17:21] LABS: Basophils Percent Auto 0.5 % (0-2); Eosinophils Absolute Auto 0.2 X10*3/uL (0.0-0.4); Eosinophils Percent Auto 3.6 % (0-4); Hematocrit 41.8 % (42.0-52.0); Hemoglobin 14.8 g/dl (14.0-18.0); Imm Gran Abs Auto 0.01 X10*3/uL (0.00-0.03); Imm Gran Pct Auto 0.2 % (0.0-0.4); Lymphocytes Absolute Auto 1.1 X10*3/uL (1.2-4.9); Lymphocytes Percent Auto 19.3 % (20-40); Mean Corpuscular HGB Conc 35.4 g/dl (31.0-36.0); Mean Corpuscular Volume 87.6 fL (80.0-98.0); Mean Platelet Volume 10.6 fL (9.4-12.4); Monocytes Absolute Auto 1.1 X10*3/uL (0.1-1.2); Monocytes Percent Auto 18.3 % (2-11); Neutrophils Absolute Auto 3.4 x10*3/uL (2.0-8.3); Neutrophils Percent Auto 58.1 % (45-73); Platelet Count 200 X10*3/uL (160-400); Red Blood Count 4.77 X10*6/uL (4.60-5.80); Red Cell Distribution Width 11.9 % (11.0-16.0); White Blood Count 5.9 X10*3/uL (4.8-10.8)
[2024-05-30 17:34] LABS: INTERNATIONAL NORM RATIO 1.2 (0.9-1.1); Prothrombin Time 13.4 SEC (10.9-12.4)
[2024-05-30 17:37] LABS: Alanine Aminotransferase 93 U/L (0-40); Albumin Level 4.4 g/dL (3.5-5.0); Alkaline Phosphatase 56 U/L (39-117); Anion Gap 11 (12-20); Aspartate Amino Transferase 53 U/L (5-37); Bilirubin Total 0.5 mg/dL (0.0-1.0); Blood Urea Nitrogen 15 mg/dL (9-16); Calcium 8.7 mg/dL (8.4-10.2); Carbon Dioxide 25 mmol/L (22-29); Chloride 108 mmol/L (96-108); Creatinine Clr Calc Pharmacy 125.5; Estimated Glomerular Filt Rate > 60; Glucose Random 111 mg/dL (60-115); Potassium 4.1 mmol/L (3.3-5.1); Sodium 140 mmol/L (135-145); Total Protein 8.3 g/dL (6.5-8.0)
[2024-05-30 17:51] LABS: Troponin-I High Sensitivity < 2.7 ng/L (<3.5-35.0)
[2024-05-30 17:57] LABS: Influenza A PCR NEGATIVE (Negative); Influenza B PCR POSITIVE (Negative); Resp Syncy Virus RNA Qual PCR NEGATIVE (Negative); SARS COV2 PCR INHOUSE NEGATIVE (Negative)
[2024-05-30] MEDS: Albuterol Sulfate 5 MG, Albuterol/Iprat 2.5/0.5MG 3 ML 3 ML INHALE (19:29)
[2024-05-30 19:31] VITALS: PULSE 112; RESP 26; O2SAT 97
--- NOTE | 2024-05-30 23:56 | PC.NURSE ---
pt made registration staff aware pt was leaving without completing treatment
== END 2024-05-30 23:56 | disposition left against medical advice (07) ==
PROVIDERS: Physician Assistant Medical; Emergency Provider Emergency Medicine; PCP Family Medicine
DX: J10.1 Influenza due to other identified influenza virus with other respiratory manifestations (principal); R07.9 Chest pain, unspecified; J45.909 Unspecified asthma, uncomplicated; Z03.818 Encounter for observation for suspected exposure to other biological agents ruled out
CPT/HCPCS: 0241U; 71046; 80053; 83735; 84484; 85025; 85610; 93005; 94640; 99284

== ENCOUNTER → 2024-05-30 17:04 | Outpatient (BNV) | payer OTHER, SELFPAY | PROVIDERS: Emergency Provider Emergency Medicine; PCP Family Medicine; Visit Provider Internal Medicine Cardiovascular Disease | DX: I45.10 Unspecified right bundle-branch block (principal); R00.0 Tachycardia, unspecified | CPT/HCPCS: 93010 ==

== ENCOUNTER → 2024-05-30 17:04 | Outpatient (BNV) | payer OTHER, SELFPAY | PROVIDERS: PCP Family Medicine; Visit Provider Radiology Diagnostic Radiology | DX: R05.9 Cough, unspecified (principal) | CPT/HCPCS: 71046 ==